=== PATIENT | male | born 1960 | race American Indian/Alaskan Native ===

== ENCOUNTER 2017-08-23 16:36 | Emergency (ER) | payer OTHER ==
[2017-08-23] MEDS ORDERED: Ondansetron INJ* 2 MG/ML VIAL IV ONE (17:30)
[2017-08-23] MEDS ORDERED: NS 0.9% 1000 ML* 1,000 ML IV ONE (17:30)
[2017-08-23] MEDS ORDERED: Ketorolac INJ* 30 MG/ML 1 ML VIAL IV ONE (17:30)
[2017-08-23 18:24] LABS: Hematocrit 40 % (42-52); Hemoglobin 13.6 g/dl (14.0-18.0); Mean Corpuscular HGB Conc 34 g/dl (31-36); Mean Corpuscular Hemoglobin 30 pg (27-31); Mean Corpuscular Volume 89 fL (80-94); Mean Platelet Volume 9 um3 (7.4-10.4); Red Blood Count 4.51 10^6/ul (4.0-5.4); Red Cell Distribution Width 14 % (10.5-15); White Blood Count 7.2 10^3/ul (3.5-10.8)
[2017-08-23 18:38] LABS: Albumin 4.1 g/dL (3.2-5.2); C Reactive Protein 2.19 mg/L (< 5.00); Calcium 8.8 mg/dL (8.6-10.3); EGFR Non-African American 82.4 (>60); Globulin 2.6 g/dL (2-4); Total Bilirubin 0.4 mg/dL (0.2-1.0); Total Protein 6.7 g/dL (6.4-8.9)
--- NOTE | 2017-08-23 18:59 | RAD ---
CLINICAL HISTORY: Right flank pain in a patient with a reported history of renal stones. COMPARISON: None TECHNIQUE: Noncontrast CT examination of the abdomen and pelvis from the lung bases through the initial tuberosities. FINDINGS: VISUALIZED LUNG BASES: The visualized lung bases are grossly clear. There is no pleural effusion. ABDOMEN AND PELVIS: Evaluation of the solid organs and vasculature is limited without intravenous contrast. In the left lobe of the liver there is a fluid density cyst. The liver is otherwise homogenous in attenuation. The spleen, pancreas and adrenal glands are grossly normal in appearance. The gallbladder is normal. At the upper pole collecting system of the right kidney there are 2 stones measuring up to 3 mm in greatest dimension. At the upper pole left kidney there is a 2 mm calcification. At the mid-level collecting system there is a punctate calcification. At the lower pole there are 2 small calcifications measuring up to 2 mm in diameter. There are no renal calculi in either ureter or the urinary bladder. There is no asymmetric hydronephrosis. Evaluation of the gastrointestinal tract is limited without oral contrast. There is hyperattenuating material in the distal appendix and the appendix measures up to 9 mm in diameter (axial image 96 and coronal image 51). There is no periappendiceal inflammatory change. There is no fluid around the appendix. The small large bowel are not pathologically distended. There are distal colonic diverticula but none exhibit focal inflammatory change. There is no gross retroperitoneal or mesenteric lymphadenopathy. The pelvic viscera is normal in appearance. The abdominal aorta and iliac arteries are normal in course and diameter. Degenerative changes include multilevel loss of intervertebral disc height involving the lower thoracic and lumbar spine including vacuum disc phenomenon at L5/S1.There are no sinister bone lesions. IMPRESSION: 1. There are bilateral renal calculi in the collecting systems but no calculi in either ureter or the urinary bladder. There are no signs of urinary obstruction. 2. Hyperdense material is seen in the slightly dilated distal appendix but there is no definite periappendiceal inflammatory change associated with acute appendicitis. Please correlate to signs and symptoms of early appendicitis. 3. Additional chronic appearing and degenerative changes described in the body the report.
[2017-08-23 19:05] LABS: Urine Bilirubin Negative (Negative); Urine Glucose Negative (Negative); Urine Nitrite Negative (Negative)
--- NOTE | 2017-08-23 19:53 | ED ---
Sara Dunbar Gabriel, scribed for Betty Ernandez MD on 08/23/17 at 1829 . Abdominal Pain/Male - HPI Summary HPI Summary: This patient is a 57 year old presenting to [facility] accompanied by guards with a chief complaint of right sided flank pain and dysuria. The patient rates the pain 9/10 in severity. Pt has a history of kidney stones. - History of Current Complaint Chief Complaint: EDFlankPain Stated Complaint: FLANK PAIN Time Seen by Provider: 08/23/17 17:29 Hx Obtained From: Patient Onset/Duration: Still Present Timing: Constant Pain Intensity: 9 Pain Scale Used: 0-10 Numeric Location: Diffuse Radiates: Yes Radiates to: Flank Associated Signs And Symptoms: Positive: Other - dysuria - Allergies/Home Medications Allergies/Adverse Reactions: Allergies Allergy/AdvReac Type Severity Reaction Status Date / Time No Known Allergies Allergy Verified 08/23/17 17:29 PMH/Surg Hx/FS Hx/Imm Hx Previously Healthy: No Respiratory History: Reports: Hx Asthma Sensory History: Denies: Hx Legally Blind - Surgical History Surgery Procedure, Year, and Place: PINS IN LEG Infectious Disease History: No Infectious Disease History: Denies: Traveled Outside the [place] in Last 30 Days - Family History Known Family History: Negative: Diabetes - Social History Alcohol Use: None Hx Substance Use: No Substance Use Type: Reports: None Hx Tobacco Use: No Review of Systems Negative: Fever Positive: dysuria, flank pain All Other Systems Reviewed And Are Negative: Yes Physical Exam - Summary Physical Exam Summary: General: Well appearing, no pain distress, Skin: Warm, Skin Color Reflects Adequate Perfusion, Dry Eyes: EOMI, JUAN ENT: Pharynx normal, TMs normal Neck: Supple, nontender Respiratory: CTA, breath sounds present, no rhonchi, no wheezes, no rales Cardiovascular: RRR, no murmur, no rub, no gallop Abdomen: Soft, nontender, Non-distended, no guarding, no rebound Bowel: Present Musculoskeletal: BREANN, No edema Neuro: Sensory/motor intact, A&Ox3, CN intact 2-12 Psych: Affect/mood appropriate Triage Information Reviewed: Yes Vital Signs On Initial Exam: Initial Vitals Temp Pulse Resp BP Pulse Ox 97.7 F 69 16 122/93 98 08/23/17 16:39 08/23/17 16:39 08/23/17 16:39 08/23/17 16:39 08/23/17 16:39 Vital Signs Reviewed: Yes - [place] Coma Scale Coma Scale Total: 15 Diagnostics - Vital Signs Vital Signs Temp Pulse Resp BP Pulse Ox 08/23/17 18:00 63 97 08/23/17 17:33 67 96 08/23/17 17:31 103/68 08/23/17 16:39 97.7 F 69 16 122/93 98 - Laboratory Lab Results: Lab Results 08/23/17 Range/Units 18:09 WBC 7.2 (3.5-10.8) 10^3/ul RBC 4.51 (4.0-5.4) 10^6/ul Hgb 13.6 L (14.0-18.0) g/dl Hct 40 L (42-52) % MCV 89 (80-94) fL MCH 30 (27-31) pg MCHC 34 (31-36) g/dl RDW 14 (10.5-15) % Plt Count 184 (150-450) 10^3/ul MPV 9 (7.4-10.4) um3 Neut % (Auto) 58.7 (38-83) % Lymph % (Auto) 28.4 (25-47) % [place] % (Auto) 7.9 (1-9) % Eos % (Auto) 4.1 (0-6) % Baso % (Auto) 0.9 (0-2) % Absolute Neuts (auto) 4.2 (1.5-7.7) 10^3/ul Absolute Lymphs (auto) 2.0 (1.0-4.8) 10^3/ul Absolute Monos (auto) 0.6 (0-0.8) 10^3/ul Absolute Eos (auto) 0.3 (0-0.6) 10^3/ul Absolute Basos (auto) 0.1 (0-0.2) 10^3/ul Absolute Nucleated RBC 0 10^3/ul Nucleated RBC % 0 Result Diagrams: 08/23/17 18:09 08/23/17 18:09 Lab Statement: Any lab studies that have been ordered have been reviewed, and results considered in the medical decision making process. - CT CT ABD/Pelvis CT Interpretation Completed By: Radiologist - 1. There are bilateral renal calculi in the collecting systems but no calculi in either ureter or the urinary bladder. There are no signs of urinary obstruction. 2. Hyperdense material is seen in the slightly dilated distal appendix but there is no definite periappendiceal inflammatory change associated with acute appendicitis. Please correlate to signs and symptoms of early appendicitis. 3. Additional chronic appearing and degenerative changes described in the body the report. ED physician has reviewed this radiology report and agrees. Abdominal Pain Fem Course/Dx - Course Course Of Treatment: 57 yo male with hx of stones with right flank pain no rlq pain ct shows stones in kidney but not in ureter labs neg. re-exam after toradol no pain or tenderness. there is debris in the appendix but no signs of inflammation and no wbc and no tenderness - Diagnoses Provider Diagnoses: Flank pain Discharge - Discharge Plan Condition: Stable Disposition: HOME Patient Education Materials: Flank Pain (ED) Referrals: [facility], [Primary Care Provider] - 3 Days Additional Instructions: RETURN TO THE EMERGENCY DEPARTMENT FOR CHANGING OR WORSENING SYMPTOMS. The documentation as recorded by the Sara hart Gabriel accurately reflects the service I personally performed and the decisions made by , Betty Ernandez MD.
[2017-08-23 19:56] VITALS: BP 118/76
== END 2017-08-23 19:58 | disposition home or self-care (01) ==
LOC: ED 16:36
DX: R10.84 Generalized abdominal pain (principal); R30.0 Dysuria
CPT/HCPCS: 36415; 74176; 80053; 81003; 83605; 83690; 85025; 86140; 87040; 99282; J1885; J2405